=== PATIENT | female | born 1985 | race Caucasian/White ===

== ENCOUNTER 2020-12-26 11:29 | Emergency (ER) | payer MEDICAID ==
[~2020-12-26] VITALS: Ht 170.2 cm; Wt 88.0 kg
[2020-12-26 11:31] VITALS: BP 137/73
--- NOTE | 2020-12-26 13:02 | NUR ---
BUILDING CARPENTER: PT IN RADIOLOGY THEN TO GO TO ROOM
[2020-12-26] MEDS ORDERED: FLUORESCEIN OPHTHALMIC 1 MG STRIP ONE (13:13)
[2020-12-26] MEDS ORDERED: PROPARACAINE OPHTH 0.5%, 15ML ONE (13:13)
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
[2020-12-26] MEDS ORDERED: PROPARACAINE OPHTH 0.5%, 15ML LEFTEYE ONE (13:30)
[2020-12-26] MEDS ORDERED: FLUORESCEIN OPHTHALMIC 1 MG STRIP LEFTEYE ONE (13:30)
[2020-12-26] MEDS ORDERED: ONDANSETRON ODT 4 MG ONE (13:59)
[2020-12-26] MEDS ORDERED: HYDROcodone/APAP 5/325 TABLET ONE (14:00)
[2020-12-26] MEDS ORDERED: HYDROcodone/APAP 5/325 TABLET PO ONE (14:00)
[2020-12-26] MEDS ORDERED: ONDANSETRON ODT 4 MG PO ONE (14:00)
--- NOTE | 2020-12-26 14:02 | NUR ---
BREAK RN: PT MEDICATED PER EMAR. RESP EVEN AND UNLABORED, BRISEYDA.
--- NOTE | 2020-12-26 15:01 | NUR ---
dc instructions reviewed
== END 2020-12-26 15:03 | disposition home or self-care (01) ==
LOC: ED 13:33
DX: S93.401A Sprain of unspecified ligament of right ankle, initial encounter (principal); S05.12XA Contusion of eyeball and orbital tissues, left eye, initial encounter; S09.90XA Unspecified injury of head, initial encounter; H11.32 Conjunctival hemorrhage, left eye; Z90.49 Acquired absence of other specified parts of digestive tract; Z88.0 Allergy status to penicillin; W22.8XXA Striking against or struck by other objects, initial encounter; Y93.89 Activity, other specified; Y92.410 Unspecified street and highway as the place of occurrence of the external cause; Y99.8 Other external cause status
CPT/HCPCS: 70486; 73610; 99284; Q0162